=== PATIENT | female | born 1955 | race Hispanic/Latino ===

== ENCOUNTER 2022-11-25 11:40 | Emergency (ER) | payer OTHER, MEDICARE ==
[~2022-11-25] VITALS: Ht 154.9 cm; Wt 71.2 kg
[2022-11-25] MEDS ORDERED: ACETAMINOPHEN 500 MG TABLET PO STA (11:46)
[2022-11-25] MEDS ORDERED: TETANUS/DIPHTHERIA TOXOID [ADULT] 0.5 ML VIAL IM ONE (12:00)
[2022-11-25 14:08] LABS: BASOPHILS % (AUTO) 0.3 % (0.0-5.0); EOSINOPHILS % (AUTO) 0.3 % (0.0-8.0); HEMATOCRIT 40.3 % (36-48); LYMPHOCYTES % (AUTO) 12.7 % (21.0-51.0); MEAN CORPUSCULAR HEMOGLOBIN 28.7 pg (27.0-33.0); MONOCYTES % (AUTO) 4.7 % (3.0-13.0); NEUTROPHILS % (AUTO) 81.7 % (40.0-77.0); PLATELET COUNT (AUTO) 316 K/uL (130-400); RED BLOOD CELL COUNT(AUTO) 4.63 MIL/uL (4.00-5.50); RED CELL DISTRIBUTION WIDTH 13.7 % (11.0-15.5); WHITE BLOOD COUNT (AUTO) 10.4 K/uL (4.8-10.8)
[2022-11-25 14:18] LABS: CREATININE 0.8 mg/dL (0.5-1.5); POTASSIUM 3.4 mmol/L (3.5-5.1)
[2022-11-25 14:23] LABS: TOTAL PROTEIN, SERUM 7.8 g/dL (6.0-8.3)
[2022-11-25] MEDS ORDERED: ACET-66 PO (14:50)
[2022-11-25] MEDS ORDERED: CEPH500B PO (14:50)
[2022-11-25] MEDS ORDERED: BACITRACIN 1 EACH PACKET TP ONE (15:00)
[2022-11-25 15:18] VITALS: BP 135/77
== END 2022-11-25 15:33 | disposition home or self-care (01) ==
LOC: EDH 11:40
DX: S01.01XA Laceration without foreign body of scalp, initial encounter (principal); E11.9 Type 2 diabetes mellitus without complications; E78.00 Pure hypercholesterolemia, unspecified; I10 Essential (primary) hypertension; Z90.49 Acquired absence of other specified parts of digestive tract; Y30.XXXA Falling, jumping or pushed from a high place, undetermined intent, initial encounter; Y93.89 Activity, other specified; Y92.512 Supermarket, store or market as the place of occurrence of the external cause; Y99.8 Other external cause status
CPT/HCPCS: 12002; 36415; 70450; 72125; 80053; 85025; 90471; 90714